=== PATIENT | male | born 1980 ===

== ENCOUNTER 2020-11-11 03:47 | Emergency (ER) | payer SELFPAY ==
[2020-11-11 03:49] VITALS: PULSE 95; RESP 16; TEMP 36.4; O2SAT 100; BMI 25.1
[2020-11-11 03:53] VITALS: BP 119/95
--- NOTE | 2020-11-11 03:55 | ED.RN ---
PATIENT ASKED IF HE COULD GO OUT AND SMOKE AND COME BACK IN. THIS RN INFORMED HIM THIS IS A NON SMOKING FACILITY AND HE COULD NOT COME IN AND OUT. PATIENT STATES HE NO LONGER WANTS TO BE SEEN BY DOCTOR. PATIENT STATES I WILL BE FINE.
== END 2020-11-11 03:55 | disposition left against medical advice (07) ==
LOC: ED 03:57
PROVIDERS: Emergency Provider Emergency Medicine
DX: M79.671 Pain in right foot (principal)
CPT/HCPCS: 99281